=== PATIENT | male | born 1965 | race African-American/Black ===

== ENCOUNTER 2016-10-16 10:08 | Day surgery (SDC) | payer MEDICARE, BC ==
--- NOTE | ~2016-10-16 | EGD ---
EGD REPORT [facility] [address] [address] NAME: NEHAL MOYA : [birth year] [place] [facility] [place] [id number] AGE: 51 ADM/REG DATE : 10/16/16 MR#: [id number] REPORT SERV DATE: 10/16/16 DICTATED BY: AKI HERNANDEZ III DATE: 10/16/16 REPORT STATUS : Draft TRANSCRIBED BY: [facility] DATE: 10/16/16 Endoscopy Center Patient Name: Nehal Moya Date of : 1965 Attending MD: AKI HERNANDEZ III, MD Procedure Date No Time: 10/16/2016 Procedure: Colonoscopy Indications: Screening for colorectal malignant neoplasm Referring MD: JACKI ONEAL Medicines: Propofol per Anesthesia Complications: No immediate complications. Procedure: Pre-Anesthesia Assessment: - ASA Grade Assessment: III - A patient with severe systemic disease. After I obtained informed consent, the scope was passed under direct vision. Throughout the procedure, the patient's blood pressure, pulse, and oxygen saturations were monitored continuously. The PCF [id number] was introduced through the anus and advanced to the cecum, identified by appendiceal orifice and ileocecal valve. The colonoscopy was performed with ease. The patient tolerated the procedure well. The quality of the bowel preparation was good. Findings: A few small-mouthed diverticula were found in the sigmoid colon. Internal hemorrhoids were found during retroflexion. A sessile polyp was found in the transverse colon. The polyp was 10 mm in size. The polyp was removed with a hot snare. Resection and retrieval were complete. Impression: - Diverticulosis in the sigmoid colon. - Internal hemorrhoids. - One 10 mm polyp in the transverse colon. Resected and retrieved. Recommendation: - Patient has a contact number available for emergencies. The signs and symptoms of potential delayed complications were discussed with the patient. Return to normal activities tomorrow. Written discharge instructions were provided to the patient. - Discharge patient to home. - Continue present medications. - Return to previous diet. - Await pathology results. EGD REPORT [address] [address] NAME: NEHAL MOYA : [birth year] [place] [facility] [place] [id number] AGE: 51 ADM/REG DATE : 10/16/16 MR#: [id number] REPORT SERV DATE: 10/16/16 DICTATED BY: AKI HERNANDEZ III DATE: 10/16/16 REPORT STATUS : Draft TRANSCRIBED BY: [employer] DATE: 10/16/16 Procedure Code(s): --- Professional --- 11929, Colonoscopy, flexible, proximal to splenic flexure; with removal of tumor(s), polyp(s), or other lesion(s) by snare technique Diagnosis Code(s): --- Professional --- K64.8, Other hemorrhoids K57.30, Diverticulosis of large intestine without perforation or abscess without bleeding D12.3, Benign neoplasm of transverse colon Z12.11, Encounter for screening for malignant neoplasm of colon CPT copyright 2013 [employer]. All rights reserved. The codes documented in this report are preliminary and upon property management assistant review may be revised to meet current compliance requirements. AKI HERNANDEZ III, MD 10/16/2016 12:42 PM This report has been signed electronically. Number of Addenda: 0 Note Initiated On: 10/16/2016 12:10 PM Scope Withdrawal Time 0 hours 15 minutes 5 seconds [address] [id number]
[~2016-10-16 10:08] MED LIST: ACCUNEB INH; AMARYL1 MG PO; APPLE CIDER VINEGAR; ARANESP100 SC; ASAB PO; BIST PO; BUM2 PO; CARDURA8 MG PO; CAT1 PO; CAT3 PO; COREG25 PO; COZ50 PO; CYANO1000T PO; DEMA20 PO; DILT-XR240 MG PO; DSS PO; EFFIENT10 PO; EPOGEN SC; FERROUS SULF325 M1 PO; HYDRALAZINE100 MG PO; KLOR-CON 1010 MEQ PO; LANTUS; LANTUS SC; LEVEMFLXPN SC; LINZESS 290 M290 MCG PO; LIPITOR40 PO; LIQUACEL PROTEIN; MULTIPLE VIT PO; NOVLOGPUMP SC; NOVOLOG SC; NOVOPEN SC; PHOSLO PO; PLAVIX PO; REG5 PO; ROCALTROL 0.0.25 MCG OR; SENTAB PO; SYMBICORT 160/41 INH INH
[2016-10-16 11:49] LABS: BUN (BLOOD UREA NITROGEN) 55 MG/DL (6-23); CALCIUM, SERUM 7.9 MG/DL (8.5-10.4); CHLORIDE, SERUM 101 MMOL/L (96-112); CO2 (CARBON DIOXIDE) 27 MMOL/L (24-34); CREATININE 8.68 MG/DL (0.70-1.30); GFR AFRICAN AMERICAN 7 ML/MIN (>=60); GFR NON AFRICAN AMERICAN 6 ML/MIN (>=60); GLUCOSE, SERUM 118 MG/DL (60-99); POTASSIUM, SERUM 3.4 MMOL/L (3.5-5.3); SODIUM, SERUM 141 MMOL/L (135-148)
== END 2016-10-16 23:59 | disposition home health service (06) ==
LOC: DMU 10:08
PROVIDERS: Anesthesiology; Internal Medicine Gastroenterology
PROC: 0DBL8ZZ Excision of Transverse Colon, Via Natural or Artificial Opening Endoscopic (ICD-10-PCS; principal; 2016-10-16 11:30)
DX: Z12.11 Encounter for screening for malignant neoplasm of colon (principal); D12.3 Benign neoplasm of transverse colon; K57.30 Diverticulosis of large intestine without perforation or abscess without bleeding; K64.8 Other hemorrhoids; I25.10 Atherosclerotic heart disease of native coronary artery without angina pectoris; E11.9 Type 2 diabetes mellitus without complications; Z88.8 Allergy status to other drugs, medicaments and biological substances; Z86.73 Personal history of transient ischemic attack (TIA), and cerebral infarction without residual deficits; Z98.890 Other specified postprocedural states
CPT/HCPCS: 80048; 88305